=== PATIENT | female | born 1990 | race Two or more races ===

== ENCOUNTER → 2020-09-10 11:03 | Outpatient (BNVA) | payer OTHER, SELFPAY | PROVIDERS: Visit Provider Physician Assistant | DX: S93.401A Sprain of unspecified ligament of right ankle, initial encounter (principal); T14.8XXA Other injury of unspecified body region, initial encounter; W01.0XXA Fall on same level from slipping, tripping and stumbling without subsequent striking against object, initial encounter | CPT/HCPCS: 73610; 99203 ==

== ENCOUNTER → 2020-09-15 11:17 | Outpatient (BNVA) | payer OTHER, SELFPAY | PROVIDERS: Visit Provider Physician Assistant | DX: S93.401A Sprain of unspecified ligament of right ankle, initial encounter (principal); S40.011A Contusion of right shoulder, initial encounter; X58.XXXA Exposure to other specified factors, initial encounter | CPT/HCPCS: 99213 ==

== ENCOUNTER → 2020-09-24 11:02 | Outpatient (BNVA) | payer OTHER, SELFPAY | PROVIDERS: Visit Provider Physician Assistant | DX: S93.401A Sprain of unspecified ligament of right ankle, initial encounter (principal); X58.XXXA Exposure to other specified factors, initial encounter | CPT/HCPCS: 99213 ==

== ENCOUNTER 2023-11-01 08:51 | Outpatient (AMB) | payer OTHER, SELFPAY ==
--- NOTE | 2023-11-01 09:03 | AM.OFFWIN_ITS ---
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 ? Sprain. Happened [place] at [employer]. Patient Tobacco Use Status: Never used Tobacco Allergies No Known Allergies Allergy (Verified 11/01/23 09:03) Do you need a note to return to daycare/school/sports/work: Yes HPI HPI Comments History of Present Illness Details 33 yo female patient who presents to the walk in clinic with c/o left Ankle pain and swelling since yesterday. She was playing with her kids on the [place] [employer] and thinks she might have injured then. Pain with walking or standing for prolonged period of times. Reports taking Acetaminophen with some pain relif. PFSH Social History Patient Tobacco Use Status: Never used Tobacco Review of Systems Const All systems reviewed & are unremarkable except as noted in HPI and below Physical Exam Vital Signs: Last Vital Signs Temp 97.6 F 11/01/23 09:04 Pulse 74 11/01/23 09:04 BP 116/78 11/01/23 09:04 Pulse Ox 98 11/01/23 09:04 Oxygen Delivery Method Room Air 11/01/23 09:04 BMI result Body Mass Index 39.0 Const General: cooperative and no acute distress Nutritional Appearance: obese Orientation/consciousness: patient oriented x3 Skin General skin exam: no rashes or lesions noted Neuro Other: Walks with a slight limp General: patient oriented x3 and moves all extremities Extrem Right lower extremity: normal to inspection and full ROM Left lower extremity: ankle Details: tenderness (Tenderness at the Calcaneus bone) Location: of the lateral malleolus, swelling Details: laterally and abnormal ROM; no warmth, no abrasions, no ecchymosis and no crepitus Psych Speech and movement: Normal speech and movement present Assessment & Plan Assessment & Plan (1) Sprain of left ankle: Code(s): S93.402A - Sprain of unspecified ligament of left ankle, initial encounter Qualifiers: Encounter type: initial encounter Involved ligament of ankle: unspecified ligament Qualified Code(s): S93.402A - Sprain of unspecified ligament of left ankle, initial encounter Plan: Applied Ankle Brace REst joint and elevate NSAIDs for pain relief IceHot Plan Ordered Xray Ankle. Medications: New naproxen 500 mg PO BID 60 tabs 0RF S93.402A - Sprain of unspecified ligament of left ankle, initial encounter Coding Level of Care Code Est Pt Level 4 (13428) Diagnoses Sprain of left ankle, unspecified ligament, initial encounter S93.402A Encounter type: initial encounter Involved ligament of ankle: unspecified ligament Time Spent (min) 20
[2023-11-01 09:04] VITALS: BP 116/78; PULSE 74; TEMP 36.4; O2SAT 98; BMI 39.0
== END 2023-11-01 11:04 | disposition home or self-care (01) ==
PROVIDERS: PCP Nurse Practitioner Family; Visit Provider Nurse Practitioner Family
DX: S93.402A Sprain of unspecified ligament of left ankle, initial encounter (principal)
CPT/HCPCS: 99214

== ENCOUNTER 2023-11-01 09:25 | Outpatient (REF) | payer OTHER, SELFPAY ==
--- NOTE | ~2023-11-01 | XR_ITS ---
EXAMINATION: XR ANKLE, LEFT CLINICAL INFORMATION: Straining of unspecified ligaments of left ankle. COMPARISON: None available. TECHNIQUE: AP, lateral, and mortise views of the left ankle. FINDINGS: Large plantar calcaneal spur. Bone mineralization is normal. Ankle mortise is maintained. No acute displaced fracture appreciated. XR/XR ankle LT min 3V IMPRESSION: 1. Large plantar calcaneal spur. 2. No acute displaced fracture. Recommend follow up imaging in 10 to 14 days if fracture is suspected. This study was presented today November 01, 2023 for interpretation. Stat results provided at this time as requested by referring provider.
== END 2023-11-01 09:26 | disposition home or self-care (01) ==
LOC: HO.HMGCX 09:25
PROVIDERS: PCP Nurse Practitioner Family; Visit Provider Nurse Practitioner Family
DX: S93.402D Sprain of unspecified ligament of left ankle, subsequent encounter (principal)
CPT/HCPCS: 73610

== ENCOUNTER 2024-03-15 10:30 | Outpatient (REF) | payer OTHER, SELFPAY ==
[2024-03-15 14:40] LABS: Influenza A PCR NEGATIVE (Negative); Influenza B PCR NEGATIVE (Negative); Resp Syncy Virus RNA Qual PCR POSITIVE (Negative); SARS COV2 PCR INHOUSE NEGATIVE (Negative)
== END 2024-03-15 10:31 | disposition home or self-care (01) ==
LOC: HO.LAB 10:30
PROVIDERS: PCP Nurse Practitioner Family; Visit Provider Physician Assistant
DX: J06.9 Acute upper respiratory infection, unspecified (principal)
CPT/HCPCS: 0241U; 87880

== ENCOUNTER 2024-03-15 10:30 | Outpatient (AMB) | payer OTHER, SELFPAY ==
--- NOTE | 2024-03-15 10:46 | MHC.OFFWIV ---
Intake Vital Signs 03/15/24 10:48 Weight 224 lb BP 112/70 Blood Pressure Location Rt brachial Position Sitting Pulse 82 Pulse Source Pulse Oximeter Temp 98.9 F Temp Source Oral Pulse Oximetry (%) 98 Oxygen Delivery Method Room Air Intake Visit Reasons: EP sore throat, body ache, headache Intake Note: Patient here for sore throat, body aches and headaches that started about 1 week ago. Patient Tobacco Use Status: Never used Tobacco Allergies No Known Allergies Allergy (Verified 03/15/24 10:49) Do you need a note to return to daycare/school/sports/work: No HPI HPI Comments History of Present Illness Details History The patient is a 33-year-old female presenting with symptoms consistent with a viral upper respiratory infection. She reports that her throat has been sore, particularly worsening over the last two nights. She also experiences ear pain, swollen glands, generalized body aches, and chills, although she has not measured any fevers. Symptoms began approximately one week ago for the headache and a few days more acutely for the sore throat and associated symptoms. She has been managing the symptoms with Tylenol every eight hours and a combination of NyQuil for cold and flu symptoms. The relief is temporary; she feels better upon waking but deteriorates as the day progresses. She denies any significant cough beyond a mild occasional one, no wheezing, and no shortness of breath that would necessitate the use of an inhaler, although she does have asthma. She works at a [employer] in [place], where several colleagues have been ill recently. She is concerned about health management as she plans to travel on a cruise to [place] in 2 days. Physical Exam General: Cooperative, healthy appearing, comfortable and no acute distress Orientation/consciousness: Patient oriented x3 Limitations: No limitations Head: Normal to inspection Ears: Hearing grossly normal bilaterally, external ears normal, bilateral TM erythema Nose: Normal external nose present, Normal nares present and No nasal discharge present Face and sinus: Normal facial exam and Yes sinuses nontender Mouth: Normal oral and palatal mucosa present and moist mucous membranes Throat: Yes tonsils normal, Yes uvula midline. Posterior oropharynx erythema Eyes: Appearance normal, both eyes and all related structures Neck: Normal visual inspection, swollen gland noted on one side Respiratory: Clear to auscultation bilaterally. Normal respiratory effort, able to speak in complete sentences, no respiratory distress, not tachypneic, no tripod positioning and no use of accessory muscles Cardiovascular: Regular rate and rhythm. Normal S1 and S2 Skin: No rashes or lesions noted Neuro: Patient oriented x3 Extremities: Normal to inspection and Yes no clubbing, cyanosis or edema PFSH Social History Patient Tobacco Use Status: Never used Tobacco Review of Systems Const All systems reviewed & are unremarkable except as noted in HPI and below Physical Exam Vital Signs: Last Vital Signs Temp 98.9 F 03/15/24 10:48 Pulse 82 03/15/24 10:48 BP 112/70 03/15/24 10:48 Pulse Ox 98 03/15/24 10:48 Oxygen Delivery Method Room Air 03/15/24 10:48 Results AMB Rapid Strep AMB Rapid Strep Negative Last Edit by NISHANT Ernst on 03/15/24 11:02 Assessment & Plan Assessment & Plan (1) URI, acute: Code(s): J06.9 - Acute upper respiratory infection, unspecified Plan: Plan - Continue symptomatic management with [id number] medications such as Tylenol and NyQuil for viral symptoms. - Swabs were taken for Influenza, COVID-19, and RSV testing. Results will be communicated to the patient once available. - Discussed the natural course of the viral illness and the typical duration of symptoms. - Provided a prescription for azithromycin Z-Pernell as a precautionary measure to cover potential atypical bacterial infections, especially considering upcoming travel. - Instructed to monitor symptoms, use her asthma inhaler if needed, and reach out for any worsening of respiratory symptoms. - Advised to seek follow-up if symptoms are not improving as expected or if any new symptoms develop. Patient was informed and verbally consented to the use of an ambient scribe for clinic note documentation during this visit Orders: Orders AMB Rapid Strep Screen Today Z13.9 - Encounter for screening, unspecified SARS-CoV2/FLU/RSV Today J06.9 - Acute upper respiratory infection, unspecified Medications: New azithromycin For 250 mg dose pack: take 500 mg today (day 1), then 250 mg for 4 days (days 2-5) PO 6 tabs 0RF Coding Level of Care Code New Pt Level 3 (16590) Diagnoses URI, acute J06.9
[2024-03-15 10:48] VITALS: BP 112/70; PULSE 82; TEMP 37.2; O2SAT 98
== END 2024-03-15 11:18 | disposition home or self-care (01) ==
PROVIDERS: PCP Nurse Practitioner Family; Visit Provider Physician Assistant
DX: J06.9 Acute upper respiratory infection, unspecified (principal); Z13.9 Encounter for screening, unspecified

== ENCOUNTER 2024-03-29 10:35 | Outpatient (AMB) | payer OTHER, SELFPAY ==
--- NOTE | 2024-03-29 11:25 | AM.OFFWIN_ITS ---
Intake Vital Signs 03/29/24 11:29 Weight 212 lb BP 112/80 Blood Pressure Location Rt brachial Position Sitting Pulse 98 Pulse Source Pulse Oximeter Temp 99.0 F Temp Source Oral Pulse Oximetry (%) 97 Oxygen Delivery Method Room Air Intake Visit Reasons: EP sore throat, fever, cough, sob Intake Note: Patient here for fever, cough, nausea,SOB, chest tightness that has been present for about 2 weeks. Patient Tobacco Use Status: Never used Tobacco Allergies No Known Allergies Allergy (Verified 03/29/24 11:30) Do you need a note to return to daycare/school/sports/work: Yes HPI HPI Comments History of Present Illness Details History - The patient is a 33-year-old female pr esenting with worsening symptoms following a Respiratory Syncytial Virus (RSV) infection. - She reports shortness of breath, bilat eral back pain, cough, fever, and recent nausea. Respiratory symptoms began after a confirmed RSV diagnosis on March 15. - Symptoms have intensified over the pas t two days, despite using cold flu medication and Tylenol. - History of asthma with increased albut rocael inhaler usage noted, but recently she ran out of medication. - Denies ear or sinus pain, although the re is some discomfort perceived between the eyes. Physical Exam General: Cooperative, healthy appearing, comfortable and no acute distress Orientation/consciousness: Patient oriented x3 Limitations: No limitations Head: Normal to inspection Ears: Hearing grossly normal bilaterally, external ears normal and TM's normal left, slight purulent effusion right TM Nose: Normal external nose present, Normal nares present and No nasal discharge present Face and sinus: Normal facial exam and Yes sinuses nontender Mouth: Normal oral and palatal mucosa present and moist mucous membranes Throat: Yes tonsils normal, Yes uvula midline. Posterior oropharynx erythema Eyes: Appearance normal, both eyes and all related structures Neck: Normal visual inspection Respiratory: Clear but dim to auscultation bilaterally. Normal respiratory effort, able to speak in complete sentences, Actively coughing, no respiratory distress, not tachypneic, no tripod positioning and no use of accessory muscles Cardiovascular: Heart rate elevated, Regular rate and rhythm. Normal S1 and S2 Skin: No rashes or lesions noted Neuro: Patient oriented x3 Extremities: Normal to inspection and Yes no clubbing, cyanosis or edema PFSH Social History Patient Tobacco Use Status: Never used Tobacco Review of Systems Const All systems reviewed & are unremarkable except as noted in HPI and below Physical Exam Vital Signs: Last Vital Signs Temp 99.0 F 03/29/24 11:29 Pulse 113 H 03/29/24 11:29 BP 112/80 03/29/24 11:29 Pulse Ox 97 03/29/24 11:29 Oxygen Delivery Method Room Air 03/29/24 11:29 Assessment & Plan Assessment & Plan (1) RSV bronchitis: Code(s): J20.5 - Acute bronchitis due to respiratory syncytial virus Plan: RSV confirmed on 03/15/24. Today, VSS, HR was elevated but came down, PE remarkable for OM and dim lung sounds. The patient is suspected of having community-acquired pneumonia alongside a confirmed diagnosis of Acute Otitis Media. Treatment involves starting Augmentin to address the ear infection and any bacterial component of the respiratory illness. A chest X-ray is ordered for further assessment; azithromycin will be added to the treatment regimen should pneumonia be confirmed. The patient should continue using the albuterol inhaler as needed every four to six hours and follow a regimen of rest and hydration. If symptoms deteriorate, a visit to the emergency department for further evaluation is recommended. Patient was informed and verbally consented to the use of an ambient scribe for clinic note documentation during this visit Orders: Orders XR chest 2V Today R05.9 - Cough, unspecified Medications: New albuterol sulfate 90 mcg/actuation 2 puffs inhalation Q6H PRN 8.5 grams 0RF shortness of breath or wheezing or cough amoxicillin-pot clavulanate 875-125 mg 1 tab PO Q12H 14 tabs 0RF Coding Level of Care Code New Pt Level 4 (60726) Diagnoses RSV bronchitis J20.5
[2024-03-29 11:29] VITALS: BP 112/80; PULSE 98; TEMP 37.2; O2SAT 97
== END 2024-03-29 11:51 | disposition home or self-care (01) ==
PROVIDERS: PCP Nurse Practitioner Family; Visit Provider Physician Assistant
DX: J20.5 Acute bronchitis due to respiratory syncytial virus (principal)

== ENCOUNTER 2024-03-29 10:35 | Outpatient (REF) | payer OTHER, SELFPAY ==
--- NOTE | ~2024-03-29 | XR_ITS ---
EXAMINATION: XR CHEST CLINICAL INFORMATION: R05.9 - Cough, unspecified COMPARISON: None available. TECHNIQUE: 2 views of the chest were obtained. FINDINGS: No significant abnormality is noted involving the heart, lungs, mediastinum, bony thorax or soft tissues. XR/XR chest 2V IMPRESSION: Unremarkable chest examination. Electronically signed by: Andrez Aguilar MD 03/29/2024 01:05 PM [facility]
== END 2024-03-29 10:36 | disposition home or self-care (01) ==
LOC: HO.HMGCX 10:35
PROVIDERS: PCP Nurse Practitioner Family; Visit Provider Physician Assistant
DX: R05.9 Cough, unspecified (principal)
CPT/HCPCS: 71046

== ENCOUNTER 2024-10-04 15:10 | Inpatient (IN) | payer OTHER, SELFPAY ==
--- NOTE | ~2024-10-04 | CT_ITS ---
CLINICAL HISTORY: abd pain, LLQ, suprapubic CT abdomen and pelvis with contrast Comparison: None provided Findings: No consolidation or effusion. Unremarkable gallbladder and solid organs. No urolithiasis. No bowel obstruction, pneumoperitoneum, or pneumatosis. 2 cm left ovarian cyst compatible with a physiologic cyst. Small amount of pelvic free fluid. Unremarkable uterus, right adnexa and urinary bladder. The appendix tip is distended with fluid, contains appendicoliths and is dilated to 11 mm. Mild thickening of the appendix wall. No gross evidence of edema of the appendix mesentery. No acute fracture. IMPRESSION: 1. Findings suggest early acute appendicitis. 2. There is a small amount of pelvic free fluid. There is no abscess. This document has been electronically signed by: Tika Parsons MD on 10/04/2024 17:07:25
[2024-10-04 15:35] VITALS: BP 101/65; PULSE 88; RESP 19; TEMP 36.5; O2SAT 99; BMI 39.3
--- NOTE | 2024-10-04 15:38 | ED_ITS ---
HPI - Abdominal Pain General Chief Complaint: Abdominal Pain Stated Complaint: LOW ABD PAIN,NAUSEA PER EMS Time Seen by Provider: 10/04/24 15:38 Source: patient and RN notes reviewed Mode of arrival: ambulatory Limitations: no limitations History of Present Illness ED Provider: Iris Rivera PA-C HPI narrative: This is a 34-year-old female, with no known medical problems, who presents emergency department with complaints of episode of lower abdominal pain which started while she was having a bowel movement this afternoon. Patient states that while she was having a normal bowel movement, was not straining, she suddenly felt pain in her left lower abdomen. She felt sweaty, and thought she was going to pass out. She did not lose consciousness. She states that she continues to have pain in her left lower quadrant as well as nausea. No vomiting. No recent fevers, chills, chest pain, shortness for breath, diarrhea or constipation. No urinary symptoms. She has a Nexplanon, states that her menses are abnormal. Denies any abnormal vaginal discharge. No concerns for sexually transmitted infections. No other complaints or concerns at this time. MD elicited complaint: abdominal pain Pertinent past history: none Onset (ago): minute(s) Pain Consistency: constant Location: LLQ and suprapubic Severity: moderate Quality: cramping Migration to: no migration Exacerbating factors: nothing Relieving factors: nothing Associated symptoms: nausea Related Data Home Medications ?Medication ?Instructions ?Recorded ?Confirmed No Known Home Meds 10/04/24 10/04/24 Allergies Allergy/AdvReac Type Severity Reaction Status Date / Time No Known Allergies Allergy Verified 10/04/24 15:44 Review of Systems Review of Systems Yes all other systems are reviewed and are negative Constitutional: Reports as per [facility] Social History Social History Patient Tobacco Use Status: Never used Tobacco Smoked in Last 30 Days: No Use of substances other than those prescribed or required for medical reasons: No Advance Directives: No Advance Directives Information Provided: No Do you have a plan to hurt others: No Plan Patient : No Physical Exam ED Vital Signs: Vital Signs - 24 hr 10/04/24 15:35 10/04/24 17:41 Temperature 97.7 F Pulse Rate 88 81 Respiratory Rate 19 18 Blood Pressure 101/65 100/68 Pulse Oximetry 99 99 Oxygen Delivery Method Room Air Room Air BMI result Body Mass Index 39.3 Const General: cooperative, comfortable and no acute distress Orientation/consciousness: patient oriented x3 Limitations: no limitations HENMT Head: Yes normal to inspection, Yes normocephalic and Yes atraumatic Ears: hearing grossly normal bilaterally General nose exam: Normal external nose present Face and sinus: Yes normal facial exam Mouth: Normal oral and palatal mucosa present, oropharynx normal and moist mucous membranes Throat: Yes posterior oropharynx normal Eyes General: appearance normal, both eyes and all related structures Eyelids: Yes eyelids normal Conjunctivae: conjunctivae normal Sclerae: sclerae normal Pupils: Equal, round and reactive pupils present EOM: EOMs intact bilaterally Neck Neck: Yes normal visual inspection, Yes full ROM and Yes no lymphadenopathy Lymphatic: no lymphadenopathy noted Chest Chest palpation & inspection: normal inspection of the chest Resp Effort & Inspection: normal respiratory effort and able to speak in complete sentences Auscultation: clear to auscultation bilaterally, no crackles, no rales, no rhonchi and no wheezes Cardio Rate: regular rate Rhythm: regular rhythm Heart sounds: S1 normal heart sound present and S2 normal heart sound present GI Other: Abdomen is soft with tenderness palpation in the left lower quadrant and suprapubic region. No rebound or guarding. Inspection: Yes normal to inspection Skin General skin exam: no rashes or lesions noted Trauma: no lacerations or abrasions Wounds: no wounds Neuro General: patient oriented x3 and moves all extremities Cranial nerves: Yes Equal, round and reactive pupils present Extrem General: Yes normal to inspection Right upper extremity: normal to inspection Left upper extremity: normal to inspection Right lower extremity: normal to inspection Left lower extremity: normal to inspection Medical Decision Making Medical Decision Making MDM Narrative: This is a 34-year-old female who presents emergency department with complaints of left lower quadrant pain and nausea which started while she was having a bowel movement this afternoon. On arrival, vital signs within normal limits, she is speaking in full sentences under no acute distress. Abdomen is soft with tenderness palpation in the left lower quadrant. No urinary symptoms. No constipation or diarrhea. No history of similar symptoms in the past. She does have mild tenderness palpation in the suprapubic region however primarily in the left lower quadrant therefore will obtain CT abdomen and pelvis with IV contrast, will also medicate with IV fluids, IV Zofran, and IV Tylenol, labs also ordered, EKG ordered due to episode of dizziness/near-syncope. Course: Labs returned, she has no leukocytosis, she is not , chemistry reveals no significant electrolyte derangement. Urine noninfectious. 1707 - CAT scan reviewed as findings suggestive of early acute appendicitis. She also has a 2 cm left ovarian cyst. I discussed this with Dr. Ryan surgeon, who will admit to the medical service for IV antibiotics. Discussed findings with patient, she is feeling much better after receiving IV fluids, antiemetics, and pain medication. Transfer of care initiated to the surgical service. Differential Diagnosis Differential Diagnoses: The differential diagnosis associated with the presentation includes Diverticulitis, diverticulosis, gastritis, SBO, UTI, nephrolithiasis Admission/Observation Consideration of admission/observation: Escalation of care including admission/observation considered Patient requiring admission secondary to early appendicitis Consult Healthcare Provider Management of the patient was discussed with: Marketing Copywriter Surgical consultation, see MDM Lab Data [facility] Lab Attestation statement: I reviewed the patient's lab results. See MDM and course 10/04/24 15:53 10/04/24 15:53 Labs: Lab Results 10/04/24 10/04/24 Range/Units 15:53 17:05 WBC 5.5 (4.8-10.8) X10*3/uL RBC 4.18 L (4.20-5.50) X10*6/uL Hgb 12.4 (12.0-16.0) g/dl Hct 36.1 L (37.0-47.0) % MCV 86.4 (80.0-98.0) fL MCH 29.7 (27.0-33.0) pg MCHC 34.3 (31.0-35.0) g/dl RDW 13.0 (11.0-16.0) % Plt Count 283 (160-400) X10*3/uL MPV 9.6 (9.4-12.3) fL Immature Gran % (Auto) 0.4 (0.0-0.4) % Neut % (Auto) 58.0 (45-73) % Lymph % (Auto) 30.9 (20-40) % [place] % (Auto) 6.7 (2-11) % Eos % (Auto) 3.6 (0-4) % Baso % (Auto) 0.4 (0-2) % Lymph # (Auto) 1.7 (1.2-4.9) X10*3/uL [place] # (Auto) 0.4 (0.1-1.2) X10*3/uL Eos # (Auto) 0.2 (0.0-0.4) X10*3/uL Baso # (Auto) 0.0 (0.0-0.2) X10*3/uL Abs Immat Gran (auto) 0.02 (0.00-0.03) X10*3/uL Absolute Neuts (auto) 3.2 (2.0-8.3) x10*3/uL Absolute Nucleated RBC 0.000 (0.0-0.012) X10*3/uL Nucleated RBC % (auto) 0.0 (0.0-0.2) /100WBC Sodium 135 (135-145) mmol/L Potassium 3.9 (3.3-5.1) mmol/L Chloride 106 (96-108) mmol/L Carbon Dioxide 22 (22-29) mmol/L Anion Gap 11 L (12-20) BUN 10 (9-16) mg/dL Creatinine 0.74 (0.5-1.4) mg/dL Estim Creat Clear Calc 114.4 Estimated GFR > 60 Random Glucose 99 (60-115) mg/dL Calcium 8.6 (8.4-10.2) mg/dL Magnesium 1.9 (1.6-2.6) mg/dL Total Bilirubin 0.5 (0.0-1.0) mg/dL Direct Bilirubin 0.2 (0.0-0.5) mg/dL AST 23 (5-31) U/L ALT 11 (0-31) U/L Alkaline Phosphatase 58 (39-117) U/L Total Protein 6.8 (6.5-8.0) g/dL Albumin 3.8 (3.5-5.0) g/dL Lipase 21 (8-78) U/L Beta HCG, Quant < 2 mIU/mL Urine Color Yellow Urine Appearance Clear Urine pH 6.5 (5.0-9.0) Ur Specific [place] 1.015 (1.005-1.025) Urine Protein Negative (Neg-Trace) mg/dL Urine Glucose (UA) Negative (Negative) mg/dL Urine Ketones 15 (Negative) mg/dL Urine Blood Negative (Negative) Urine Nitrite Negative (Negative) Ur Leukocyte Esterase Negative (Negative) Radiology Impression Discussion of test interpretation with radiology: I have reviewed the radiologist's reading. Radiologist Impression: CT abdomen and pelvis with contrast Comparison: None provided Findings: No consolidation or effusion. Unremarkable gallbladder and solid organs. No urolithiasis. No bowel obstruction, pneumoperitoneum, or pneumatosis. 2 cm left ovarian cyst compatible with a physiologic cyst. Small amount of pelvic free fluid. Unremarkable uterus, right adnexa and urinary bladder. The appendix tip is distended with fluid, contains appendicoliths and is dilated to 11 mm. Mild thickening of the appendix wall. No gross evidence of edema of the appendix mesentery. No acute fracture. IMPRESSION: 1. Findings suggest early acute appendicitis. 2. There is a small amount of pelvic free fluid. There is no abscess. This document has been electronically signed by: Tika Parsons MD on 10/04/2024 17:07:25 Dictated By: Tika Parsons MD Medications Administered Generic Name Dose Route Start Last Admin Trade Name Freq PRN Reason Stop Dose Admin Dextrose/Lactated Ringer's 1,000 mls @ 125 mls/hr 10/04/24 18:15 10/04/24 18:36 D5lr IVCONT 125 mls/hr .Q8H NORMAN Administration Piperacillin Sod/Tazobactam 50 mls @ 100 mls/hr 10/04/24 18:15 10/04/24 19:00 Sod 3.375 gm/ Sodium Chloride IV Infused Q6H NORMAN Infusion Discontinued Medications Generic Name Dose Route Start Last Admin Trade Name Freq PRN Reason Stop Dose Admin Diphenhydramine HCl 12.5 mg 10/04/24 17:15 10/04/24 17:39 Diphenhydramine Hcl 50 Mg/Ml Vial IVPUSH 10/04/24 17:16 12.5 mg ONCE ONE Administration Sodium Chloride 1,000 mls @ 999 mls/hr 10/04/24 15:39 10/04/24 17:39 Ns IV 10/04/24 16:39 Infused .Q1H1M ONE Infusion Acetaminophen 1,000 mg in 100 mls @ 400 mls/hr 10/04/24 15:45 10/04/24 16:30 Ofirmev IV 10/04/24 15:59 Infused ONCE ONE Infusion Iohexol 100 ml 10/04/24 16:30 10/04/24 16:30 Iohexol 350 Mg/Ml 100 Ml Infus..Btl IV 10/04/24 16:31 85 ml ONCE ONE Administration Metoclopramide HCl 10 mg 10/04/24 17:15 10/04/24 17:34 Metoclopramide Hcl 10 Mg/2 Ml Vial IVPUSH 10/04/24 17:16 10 mg ONCE ONE Administration Ondansetron HCl 4 mg 10/04/24 15:38 10/04/24 16:08 Ondansetron Hcl 4 Mg/2 Ml Vial IVPUSH 10/04/24 15:39 4 mg ONCE ONE Administration Critical Care Time Critical Care Time Critical Care Time: Yes Total Critical Care Time: 38 Attestation: I have personally provided critical care time exclusive of time spent on separately billable procedures. Time includes review of lab data, radiology results, discussion with consultants, and monitoring for potential decompensation. Intervention performed as documented. Discharge Plan Discharge Clinical Impression: Acute appendicitis Patient Disposition: Admitted As Inpatient Interventions: Admission Worksheet (ED) Last Done: 10/04/24 18:30
--- NOTE | 2024-10-04 15:45 | ECG_ITS ---
Test Reason : NEAR SYNCOPE Blood Pressure : */* mmHG Vent. Rate : 80 BPM Atrial Rate : 80 BPM P-R Int : 176 ms QRS Dur : 92 ms QT Int : 366 ms P-R-T Axes : 17 0 14 degrees QTcB Int : 422 ms Normal sinus rhythm Minimal voltage criteria for LVH, may be normal variant ( R in aVL ) Cannot rule out Anterior infarct , age undetermined Abnormal ECG No previous ECGs available Referred By: Iris Rivera Electronically Signed By: Tello Torres
[2024-10-04 15:57] LABS: MANUAL DIFF FLAG NO
[2024-10-04 16:02] LABS: Hematocrit 36.1 % (37.0-47.0); Hemoglobin 12.4 g/dl (12.0-16.0); Imm Gran Abs Auto 0.02 X10*3/uL (0.00-0.03); Imm Gran Pct Auto 0.4 % (0.0-0.4); Lymphocytes Absolute Auto 1.7 X10*3/uL (1.2-4.9); Mean Corpuscular HGB Conc 34.3 g/dl (31.0-35.0); Mean Corpuscular Hemoglobin 29.7 pg (27.0-33.0); Mean Corpuscular Volume 86.4 fL (80.0-98.0); NRBC Abs Auto 0.000 X10*3/uL (0.0-0.012); NRBC Pct Auto 0.0 /100WBC (0.0-0.2); Platelet Count 283 X10*3/uL (160-400); Red Blood Count 4.18 X10*6/uL (4.20-5.50); White Blood Count 5.5 X10*3/uL (4.8-10.8)
--- OUTSIDE RECORDS SUMMARY | 2024-10-04 16:10 | XMS_ITS | Patient Health Record ---
[facility] [place] Address [address] [place] [address] Care Team Providers Care Dispatcher Relay Name Role Phone Martin SAINI, Estela Primary Care Provider Cynthia Davison Unavailable [phone] Allergies No Known Allergies Reason For Referral No Information Medications Medication SIG (Take, Route, Fr equency, Duration) Notes Start Date End Date Status Albuterol Sulfate HFA Active Bone Stimulator as directed Diagnosi s: seamoid fracture-fracture of right foot, subsequent encounter for fracture with delayed healing- [id number] 02/25/2022 Active Work Note . . . Patient can retu rn to work light duty starting 03/26/22 Act reza Social History Tobacco Use: Social History Observation Description Date Details (start date - stop date) Never Smoker NA - NA Tobacco Use/Smoking Question Answer Notes Are you a: nonsmoker Alcohol Screen Question Answer Notes Did you have a drink containing alcohol in the p ast year? Yes Points 0 Interpretation Negative Tobacco use other than smoking: Question Answer Notes Are you an other tobacco user? No Plan Of Treatment Pending Test Test Name Order Date X ray : Foot, right 3V 02/01/2022 X ray : Foot, right 3V 06/16/2022 Insurance Providers Payer Name Payer Address Payer Phone Subscriber Number Group Number Insured Name Patient Relationship to Insured Coverage Start Date Coverage End Date MELITON RAMIREZ [id number] [place] [id number] [phone] [id number] Rosa Hyman Self - patient is the insured Medical (General) History Surgical History Surgery Date(Month/Year)
--- OUTSIDE RECORDS SUMMARY | 2024-10-04 16:10 | XMS_ITS | Clinical Summary ---
Author Organization [facility] Address [address] [place] [address] Care Team Providers Care Care Services Manager Name Role Phone JobyDanielle ashraf Primary Care Pro vider Surgical History Surgery Date Site/Laterality Comments OTHER SURGICAL HISTORY PROCEDURE: DENIES PREVIOUS SURGERY Family History Medical History Relation Name Comments Asthma Brother 1 Alcohol/Drug Father CABG Maternal Grandmother at age 75 Breast cancer Mother ?brca Relation Name Status Comments Brother 1 Brother 2 Father Maternal Grandmother Mother Social History Tobacco Use Types Packs/Day Years Used Date Smoking Tobacco: Never Smokeless Tobacco: Never Alcohol Use Standard Drinks/Week Comments No 0 (1 standard drink = 0.6 oz pur e alcohol) Comments Unknown Sex and Gender Information Value Date Recorded Sex Assigned at Not on file Legal Sex Female 12:23 AM EST Gender Identity Not on file Sexual Orientation Not on file Obstetrics History Plan of Treatment Health Maintenance Due Date Last Done Comments Hepatitis B Vaccines (1 of 3 - 19+ 3-dose series) 2011 Cervical Cancer Screening: P ap Smear 2013 DTaP,Tdap,and Td Vaccines (2 - Td or Tdap) 07/11/2023 07/10/2013 COVID-19 Vaccine ( - 2023-2 5 season) 2023 Influenza Vaccine (#1) 2024 HIB Vaccines Aged Out No longer eligi ble based on patient's age to complete this topic HPV Vaccines Aged Out No longer eligi ble based on patient's age to complete this topic Hepatitis A Vaccines Aged Out No long er eligible based on patient's age to complete this topic IPV Vaccines Aged Out No longer eligi ble based on patient's age to complete this topic MMR Vaccines Aged Out No longer eligi ble based on patient's age to complete this topic Meningococcal ACWY Vaccine Aged Out N o longer eligible based on patient's age to complete this topic Meningococcal B Vaccine Aged Out No l onger eligible based on patient's age to complete this topic Pneumococcal Vaccine: Pediat rics (0 to 5 Years) and At-Risk Patients (6 to 49 Years) Aged Out No longer eligi ble based on patient's age to complete this topic RSV Immunization Patients Un lila 20 months Aged Out No longer eligible b ased on patient's age to complete this topic Varicella Vaccines Aged Out No longer eligible based on patient's age to complete this topic Care Teams Care Services Manager Relationship Specialty Start Date End Date Danielle Aggarwal DO PCP - General Accounts Payable Coordinator 07/03/18
[2024-10-04 16:21] LABS: Alanine Aminotransferase 11 U/L (0-31); Albumin Level 3.8 g/dL (3.5-5.0); Alkaline Phosphatase 58 U/L (39-117); Anion Gap 11 (12-20); Aspartate Amino Transferase 23 U/L (5-31); Blood Urea Nitrogen 10 mg/dL (9-16); Calcium 8.6 mg/dL (8.4-10.2); Carbon Dioxide 22 mmol/L (22-29); Chloride 106 mmol/L (96-108); Creatinine Clr Calc Pharmacy 114.4; Estimated Glomerular Filt Rate > 60; Lipase 21 U/L (8-78); Magnesium 1.9 mg/dL (1.6-2.6); Potassium 3.9 mmol/L (3.3-5.1); Sodium 135 mmol/L (135-145); Total Protein 6.8 g/dL (6.5-8.0)
[2024-10-04] MEDS: iohexoL 350 MG/ML 100 ML INFUS..BTL IV (16:30)
[2024-10-04 17:13] LABS: Appearance Urine Clear; Glucose Urine UA Negative (Negative); PH 6.5 (5.0-9.0); Specific Gravity - Urine 1.015 (1.005-1.025)
[2024-10-04 17:41] VITALS: BP 100/68; PULSE 81; RESP 18; O2SAT 99
--- NOTE | 2024-10-04 18:12 | P.HPGS_ITS ---
History of Present Illness History of Present Illness Date of Service: 10/04/24 Chief complaint: LOW ABD PAIN,NAUSEA PER EMS Narrative: Rosa Shledon is a 34 year old female presenting with complaints of lower abdominal pain beginning today. She reports the onset of abdominal pain this afternoon and subsequently tried to have a bowel movement for reported increased in the severity of the pain. She reports feeling dizzy following this but did not pass out. She denies a previous episode of similar pain. The pain has remained in the lower abdomen both left and right. She reports nausea without vomiting after the onset of pain. She denied fever or chills. She was subsequently presented to the emergency department and was noted to have normal WBC however a CT abdomen and pelvis revealed a slightly enlarged appendix with air but without stranding. Fecalith is noted within the lumen of the appendix. She currently reports the pain is much improved and mainly in the right lower quadrant. Review of Systems Review of Systems: Yes all other systems are reviewed and are negative PMFSH Social History Social History Patient Tobacco Use Status: Never used Tobacco Smoked in Last 30 Days: No Use of substances other than those prescribed or required for medical reasons: No Advance Directives: No Advance Directives Information Provided: No Do you have a plan to hurt others: No Plan Patient : No Meds Allergies Allergy/AdvReac Type Severity Reaction Status Date / Time No Known Allergies Allergy Verified 10/04/24 15:44 Active Medications: Current Medications Calcium Carbonate (Calcium Carbonate 750 Mg Tab.Chew) 750 mg PO Q4H PRN PRN Reason: Heartburn Hydromorphone HCl (Hydromorphone Hcl 0.5 Mg/0.5 Ml Syringe) 0.5 mg IVPUSH Q3H PRN; Protocol PRN Reason: Pain, Severe (Pain Scale 7-10) Acetaminophen (Ofirmev) 1,000 mg in 100 mls @ 400 mls/hr IV Q6H PRN PRN Reason: Pain, Mild (Pain Scale 1-3) Dextrose/Lactated Ringer's (D5lr) 1,000 mls @ 125 mls/hr IVCONT .Q8H [facility] Piperacillin Sod/Tazobactam (Sod 3.375 gm/ Sodium Chloride) 50 mls @ 100 mls/hr IV Q6H [facility] Magnesium Hydroxide (Milk Of Magnesia 30 Ml Oral.Susp) 30 ml PO DAILY PRN PRN Reason: Constipation Ondansetron HCl (Ondansetron Hcl 4 Mg/2 Ml Vial) 4 mg IVPUSH QID PRN PRN Reason: Nausea Oxycodone HCl (Oxycodone Hcl Immed Release 5 Mg Tablet) 5 mg PO Q6H PRN PRN Reason: Pain, Moderate(Pain Scale 4-6) Sodium Chloride (0.9 % Sodium Chloride Flush 3 Ml Syringe) 3 ml IVFLUSH QSHIFT [facility] Zolpidem Tartrate (Zolpidem Tartrate 5 Mg Tablet) 5 mg PO BEDTIME PRN PRN Reason: Insomnia Home Medications ?Medication ?Instructions ?Recorded ?Confirmed ?Last Taken ?Type albuterol sulfate 90 mcg/actuation inhalation 11/01/23 Unknown History aerosol inhaler etonogestrel 68 mg subdermal subdermal 11/01/23 Unkno wn History implant (Nexplanon) fluticasone propionate 50 intranasal 11/01/23 Unknown History mcg/actuation nasal spray,suspension levocetirizine 5 mg tablet 5 mg PO DAILY 11/01/23 Unk nown History montelukast 10 mg tablet 10 mg PO DAILY 11/01/23 Unk nown History Physical Exam Vital Signs: Vital Signs: Last Vital Signs Temp 97.7 F 10/04/24 15:35 Pulse 81 10/04/24 17:41 Resp 18 10/04/24 17:41 BP 100/68 10/04/24 17:41 Pulse Ox 99 10/04/24 17:41 O2 Del Method Room Air 10/04/24 17:41 BMI result Body Mass Index 39.3 Const: General: cooperative and no acute distress Nutritional Appearance: well nourished Orientation/consciousness: patient oriented x3 Limitations: no limitations HEENT: Head: Yes normocephalic and Yes atraumatic Ears: hearing grossly normal bilaterally Resp: Effort & Inspection: normal respiratory effort, no audible wheezes, no cough and no respiratory distress Cardio: Jugular venous distension: no JVD GI: Other: Soft and nondistended, negative Rovsing sign, mild tenderness to deep palpation in the right lower quadrant without rebound, guarding or rigidity. No palpable masses appreciated. Inspection: Yes normal to inspection Skin: Other: Warm, dry, no rash Neuro: General: patient oriented x3 Extrem: General: Yes no clubbing, cyanosis or edema Results Results Labs: Short CBC 10/04/24 Range/Units 15:53 WBC 5.5 (4.8-10.8) X10*3/uL Hgb 12.4 (12.0-16.0) g/dl Hct 36.1 L (37.0-47.0) % Plt Count 283 (160-400) X10*3/uL BMP 10/04/24 15:53 Sodium 135 Potassium 3.9 Chloride 106 Carbon Dioxide 22 BUN 10 Creatinine 0.74 Calcium 8.6 Liver Function 10/04/24 Range/Units 15:53 Total Bilirubin 0.5 (0.0-1.0) mg/dL Direct Bilirubin 0.2 (0.0-0.5) mg/dL AST 23 (5-31) U/L ALT 11 (0-31) U/L Alkaline Phosphatase 58 (39-117) U/L Albumin 3.8 (3.5-5.0) g/dL Urine 10/04/24 Range/Units 17:05 Urine Color Yellow Urine Appearance Clear Urine pH 6.5 (5.0-9.0) Ur Specific [place] 1.015 (1.005-1.025) Urine Protein Negative (Neg-Trace) mg/dL Urine Glucose (UA) Negative (Negative) mg/dL Assessment and Plan (1) Acute appendicitis: Qualifiers: Acute appendicitis type: other Qualified Code(s): K35.890 - Other acute appendicitis without perforation or gangrene Status: Acute Plan 34-year-old female patient presenting with possible very early appendicitis with a normal WBC and mild abdominal symptoms. The pain was initially quite severe but is now improved dramatically. CT does reveal a fecalith within the lumen of the appendix as well as air proximal to the fecalith. There are minimal changes suggestive of early appendicitis. I recommended admission to the patient for IV antibiotics and observation. If her pain seems to worsen, laparoscopic appendectomy or possible open would be warranted. If on the other hand she feels much improved in his symptoms remain mild, she may be able to be discharged to home after 1-2 days of parenteral antibiotic. She expressed understanding and agrees with the plan. Quality Stroke Does the patient have a stroke diagnosis?: No VTE Prior VTE?: No VTE Risk Level:: Surgical - low VTE Device Contraindication: N/A - Device Ordered VTE Drug Contraindication: Treatment Not Indicated Procedures Date of Service Date of Service: 10/04/24
[2024-10-04] MEDS: Dextrose 5 % and Lactated Ring 1,000 ML 125 ML IVCONT (18:36)
--- NOTE | 2024-10-04 19:05 | PHA.MEDREC ---
Addendum entered by Ravi Archuleta PharmD 10/04/24 19:09: reviewed Original Note: Pharmacy Consult ? Medication Reconciliation Pharmacy has completed the medication reconciliation. Patient states she is not on ant medication.
[2024-10-04 19:58] VITALS: BP 104/65; PULSE 75; RESP 20; TEMP 36.9; O2SAT 99
[2024-10-04 22:22] VITALS: BP 96/68; PULSE 74; RESP 20; TEMP 36.8; O2SAT 98
[2024-10-05] VITALS (13 sets, daily range): BP systolic 84–118; BP diastolic 40–74; PULSE 69–100; RESP 16–20; TEMP 36.1–36.7; O2SAT 96–100; BMI 37.8
--- NOTE | 2024-10-05 01:46 | PC.NURSE ---
notified of hypotension 84/40, HR 69, awaiting new orders at this time.
--- NOTE | 2024-10-05 01:55 | PC.NURSE ---
ER MD at bedside due to hypotension. Plan for 1 liter NS. U/S paging surgical service.
[2024-10-05] MEDS: Dextrose 5 % and Lactated Ring 1,000 ML 125 ML IVCONT ×3 (03:42→17:57)
--- NOTE | 2024-10-05 03:44 | PC.NURSE ---
MD aware of BP after infusion of 1 liter NS. Plan for maintenance fluids at this time.
--- NOTE | 2024-10-05 06:20 | PC.NURSE ---
MD aware of hypotension. Plan for 3rd liter of NS.
[2024-10-05 06:44] LABS: MANUAL DIFF FLAG NO
[2024-10-05 06:56] LABS: Hematocrit 34.4 % (37.0-47.0); Hemoglobin 11.4 g/dl (12.0-16.0); Imm Gran Abs Auto 0.01 X10*3/uL (0.00-0.03); Imm Gran Pct Auto 0.2 % (0.0-0.4); Lymphocytes Absolute Auto 2.0 X10*3/uL (1.2-4.9); Mean Corpuscular HGB Conc 33.1 g/dl (31.0-35.0); Mean Corpuscular Hemoglobin 29.2 pg (27.0-33.0); Mean Corpuscular Volume 88.0 fL (80.0-98.0); NRBC Abs Auto 0.000 X10*3/uL (0.0-0.012); NRBC Pct Auto 0.0 /100WBC (0.0-0.2); Platelet Count 254 X10*3/uL (160-400); Red Blood Count 3.91 X10*6/uL (4.20-5.50); White Blood Count 4.9 X10*3/uL (4.8-10.8)
--- NOTE | 2024-10-05 07:45 | PC.NURSE ---
Pt ambulatory to/from BR with steady gait; denies pain at this time; NS bolus cont to infuse per orders; LR paused by head of strategy; pt denies N/V; pt aware of planned admission; bp 99/50; pt denies dizziness at this time
--- NOTE | 2024-10-05 07:51 | P.PNGS_ITS ---
Subjective Subjective Date of Service: 10/05/24 Interval history: Feels well this morning. Reports only very mild RLQ discomfort, significantly improved since admission. Feels hungry. Physical Exam 2 Vital Signs: Vital Signs: Last Vital Signs Temp 98.1 F 10/05/24 06:18 Pulse 77 10/05/24 06:18 Resp 16 10/05/24 06:18 BP 99/56 L 10/05/24 06:49 Pulse Ox 98 10/05/24 06:18 O2 Del Method Room Air 10/05/24 06:18 BMI result Body Mass Index 39.3 Const: General: comfortable, no acute distress and alert O rientation/consciousness: patient oriented x3 Resp: Effort & Inspection: normal respiratory effort GI: Other: mildly corpulent abdomen Inspection: No distended Palpation (GI): Soft to palpation, Tenderness to palpation present (GI) (very mild RLQ ) with no rebound tenderness and Rovsing's sign negative, no guarding and not rigid Percussion: Yes normal to percussion Skin: General skin exam: no rashes or lesions noted Neuro: General: patient oriented x3 Objective Data Active Medications Calcium Carbonate (Calcium Carbonate 750 Mg Tab.Chew) 750 mg PO Q4H PRN PRN Reason: Heartburn Hydromorphone HCl (Hydromorphone Hcl 0.5 Mg/0.5 Ml Syringe) 0.5 mg IVPUSH Q3H PRN; Protocol PRN Reason: Pain, Severe (Pain Scale 7-10) Acetaminophen (Ofirmev) 1,000 mg in 100 mls @ 400 mls/hr IV Q6H PRN PRN Reason: Pain, Mild (Pain Scale 1-3) Dextrose/Lactated Ringer's (D5lr) 1,000 mls @ 125 mls/hr IVCONT .Q8H [facility] Last Infusion: 10/05/24 06:06 Dose: 0 mls/hr Documented By: KARTIK Piperacillin Sod/Tazobactam (Sod 3.375 gm/ Sodium Chloride) 50 mls @ 100 mls/hr IV Q6H [facility] Last Infusion: 10/05/24 06:49 Dose: Infused Documented By: COOPEB Magnesium Hydroxide (Milk Of Magnesia 30 Ml Oral.Susp) 30 ml PO DAILY PRN PRN Reason: Constipation Ondansetron HCl (Ondansetron Hcl 4 Mg/2 Ml Vial) 4 mg IVPUSH QID PRN PRN Reason: Nausea Oxycodone HCl (Oxycodone Hcl Immed Release 5 Mg Tablet) 5 mg PO Q6H PRN PRN Reason: Pain, Moderate(Pain Scale 4-6) Sodium Chloride (0.9 % Sodium Chloride Flush 3 Ml Syringe) 3 ml IVFLUSH QSHIFT [facility] Last Admin: 10/05/24 07:30 Dose: Not Given Documented By: FELIPE Non-Admin Reason: IV Running Zolpidem Tartrate (Zolpidem Tartrate 5 Mg Tablet) 5 mg PO BEDTIME PRN PRN Reason: Insomnia Labs 10/05/24 06:25 10/04/24 15:53 Labs: Laboratory Results - last 24 hr 10/04/24 10/04/24 10/05/24 15:53 17:05 06:25 MCV 86.4 88.0 MCH 29.7 29.2 MCHC 34.3 33.1 RDW 13.0 13.2 Plt Count 283 254 MPV 9.6 9.8 Immature Gran % (Auto) 0.4 0.2 Neut % (Auto) 58.0 44.4 L Lymph % (Auto) 30.9 41.1 H [place] % (Auto) 6.7 9.2 Eos % (Auto) 3.6 4.5 H Baso % (Auto) 0.4 0.6 Lymph # (Auto) 1.7 2.0 [place] # (Auto) 0.4 0.5 Eos # (Auto) 0.2 0.2 Baso # (Auto) 0.0 0.0 Abs Immat Gran (auto) 0.02 0.01 Absolute Neuts (auto) 3.2 2.2 Absolute Nucleated RBC 0.000 0.000 Nucleated RBC % (auto) 0.0 0.0 Anion Gap 11 L Estim Creat Clear Calc 114.4 Estimated GFR > 60 Random Glucose 99 Calcium 8.6 Magnesium 1.9 Total Bilirubin 0.5 Direct Bilirubin 0.2 AST 23 ALT 11 Alkaline Phosphatase 58 Total Protein 6.8 Albumin 3.8 Lipase 21 Beta HCG, Quant < 2 Urine Color Yellow Urine Appearance Clear Urine pH 6.5 Ur Specific [place] 1.015 Urine Protein Negative Urine Glucose (UA) Negative Urine Ketones 15 Urine Blood Negative Urine Nitrite Negative Ur Leukocyte Esterase Negative Procedures Date of Service Date of Service: 10/05/24 Progress Note: A&P Assessment and plan (1) Acute appendicitis: Status: Acute Plan 34 year old female with acute appendicitis, nonoperative measures being pursued. She currently feels improved with significant improvement in her abdominal pain. WBC count remains normal. Abd soft, very mild RLQ tenderness, no peritoneal signs. Will advance diet. If tolerating and pain remains improved, stable for dc to home later today on a course of oral abx. Patient comfortable with plan. Time Spent With Patient Time: Total time managing care of this patient today ____ minutes. Quality Stroke Does the patient have a stroke diagnosis?: No VTE Prior VTE?: No VTE Risk Level:: Surgical - low VTE Device Contraindication: N/A - Device Ordered VTE Drug Contraindication: Treatment Not Indicated
--- NOTE | 2024-10-05 09:03 | MHC.CM.PN ---
PATIENT LIVES IN A HOME W/ HER AND 2 CHILDREN. FUNCTIONALLY INDEPENDENT. DENIES USE OF DME OR SERVICES. PCP MAR LUJAN NO REPORTS SHE HAS AN HCP NAMING HER , [facility], [facility]. COPY REQUESTED. DP: HOME SELF CARE. TO TRANSPORT. CM WILL CONTINUE TO FOLLOW.
[2024-10-05] MEDS: 0.9 % Sodium Chloride Flush 3 ML SYRINGE IVFLUSH (23:32)
[2024-10-06] MEDS: Dextrose 5 % and Lactated Ring 1,000 ML 125 ML IVCONT (02:44)
[2024-10-06 03:34] VITALS: BP 100/53; PULSE 74; RESP 16; TEMP 36.3; O2SAT 98
[2024-10-06 07:46] VITALS: BP 98/60; PULSE 78; RESP 16; TEMP 36.7; O2SAT 95
--- NOTE | 2024-10-06 10:10 | P.PNGS_ITS ---
Subjective Subjective Date of Service: 10/06/24 Interval history: Denies pain Feels well Tolerating diet No GI complaints Physical Exam 2 Vital Signs: Vital Signs: Last Vital Signs Temp 98.1 F 10/06/24 07:46 Pulse 78 10/06/24 07:46 Resp 16 10/06/24 07:46 BP 98/60 10/06/24 07:46 Pulse Ox 95 10/06/24 07:46 O2 Del Method Room Air 10/06/24 07:46 BMI result Body Mass Index 37.8 Const: General: comfortable and no acute distress Resp: Effort & Inspection: normal respiratory effort Cardio: Rate: regular rate GI: Palpation (GI): Soft to palpation, not firm, nontender and no guarding Objective Data Active Medications Calcium Carbonate (Calcium Carbonate 750 Mg Tab.Chew) 750 mg PO Q4H PRN PRN Reason: Heartburn Hydromorphone HCl (Hydromorphone Hcl 0.5 Mg/0.5 Ml Syringe) 0.5 mg IVPUSH Q3H PRN; Protocol PRN Reason: Pain, Severe (Pain Scale 7-10) Acetaminophen (Ofirmev) 1,000 mg in 100 mls @ 400 mls/hr IV Q6H PRN PRN Reason: Pain, Mild (Pain Scale 1-3) Dextrose/Lactated Ringer's (D5lr) 1,000 mls @ 125 mls/hr IVCONT .Q8H [facility] Last Infusion: 10/06/24 06:53 Dose: 125 mls/hr Documented By: LEANN Piperacillin Sod/Tazobactam (Sod 3.375 gm/ Sodium Chloride) 50 mls @ 100 mls/hr IV Q6H [facility] Last Infusion: 10/06/24 06:53 Dose: Infused Documented By: LEANN Magnesium Hydroxide (Milk Of Magnesia 30 Ml Oral.Susp) 30 ml PO DAILY PRN PRN Reason: Constipation Ondansetron HCl (Ondansetron Hcl 4 Mg/2 Ml Vial) 4 mg IVPUSH QID PRN PRN Reason: Nausea Oxycodone HCl (Oxycodone Hcl Immed Release 5 Mg Tablet) 5 mg PO Q6H PRN PRN Reason: Pain, Moderate(Pain Scale 4-6) Sodium Chloride (0.9 % Sodium Chloride Flush 3 Ml Syringe) 3 ml IVFLUSH QSHIFT [facility] Last Admin: 10/06/24 08:50 Dose: Not Given Documented By: ISRRAEL Non-Admin Reason: IV Running Zolpidem Tartrate (Zolpidem Tartrate 5 Mg Tablet) 5 mg PO BEDTIME PRN PRN Reason: Insomnia Labs 10/05/24 06:25 10/04/24 15:53 Procedures Date of Service Date of Service: 10/06/24 Progress Note: A&P Assessment and plan (1) Acute appendicitis: Status: Acute Assessment and Plan: Has had no pain or tenderness No leukocytosis No fever Looks well clinically Plan to DC home later today on oral antibiotics Discharge instructions reinforced with the patient She is to follow up with Dr. Ryan Time Spent With Patient Time: Total time managing care of this patient today ____ minutes. Quality Stroke Does the patient have a stroke diagnosis?: No VTE Prior VTE?: No VTE Risk Level:: Surgical - low VTE Device Contraindication: N/A - Device Ordered VTE Drug Contraindication: Treatment Not Indicated
--- NOTE | 2024-10-06 12:11 | MHC.CM.PN ---
PT TO DC HOME TODAY WITH NO SERVICES VIA PRIVATE TRANSPORT
[2024-10-06 13:08] VITALS: BP 117/65; PULSE 80; TEMP 37.2; O2SAT 98
--- NOTE | 2024-10-06 13:23 | PM.DS ---
DS: Providers Provider Date of Service: 10/06/24 Date of admission: 10/04/24 18:08 Date of discharge: 10/06/24 Primary care physician: Estela San NP Attending physician on admission: Abelardo Ryan Attending physician on discharge: Fortunato Tate DS: Diagnosis Discharge Diagnosis (1) Acute appendicitis: Status: Acute DS: Summary Hospital Course Hospital Course: HPI AT ADMISSION: Rosa Sheldon is a 34 year old female presenting with complaints of lower abdominal pain beginning today. She reports the onset of abdominal pain this afternoon and subsequently tried to have a bowel movement for reported increased in the severity of the pain. She reports feeling dizzy following this but did not pass out. She denies a previous episode of similar pain. The pain has remained in the lower abdomen both left and right. She reports nausea without vomiting after the onset of pain. She denied fever or chills. She was subsequently presented to the emergency department and was noted to have normal WBC however a CT abdomen and pelvis revealed a slightly enlarged appendix with air but without stranding. Fecalith is noted within the lumen of the appendix with possible air distally. She currently reports the pain is much improved and mainly in the right lower quadrant. HOSPITAL COURSE: The patient was admitted to the surgical service for further treatment of the acute appendicitis. Treatment options were discussed and she elected to proceed observation and IV antibiotics with laparoscopic appendectomy or possible open if her pain does not improve or seems to worsen. She remained inpatient for 2 nights for IV abx. On the day of discharge, she felt well and was tolerating a solid diet without nausea or vomiting or any abdominal pain. She was hemodynamically stable. Her abdomen was benign and soft without any tenderness. She felt ready for discharge. She was discharged to home on 10/06/24 in stable condition on a course of oral Augmentin. She is to follow up in the office in 1 week. Status at Discharge Functional status at discharge: independent ambulation Overall status at discharge: patient is back to baseline Time Attestation Discharge Coordination Time (in mins): 25 Quality: Safe Use of Opioids Does Pt have an Active Cancer Diagnosis on the Problem List?: No Quality: Stroke Does the patient have a stroke diagnosis?: No Physical Exam Vital Signs: Vital Signs: Last Vital Signs Temp 99.0 F 10/06/24 13:08 Pulse 80 10/06/24 13:08 Resp 16 10/06/24 07:46 BP 117/65 10/06/24 13:08 Pulse Ox 98 10/06/24 13:08 O2 Del Method Room Air 10/06/24 13:08 BMI result Body Mass Index 37.8 Const: General: comfortable, no acute distress and alert Orientation/consciousness: patient oriented x3 Resp: Effort & Inspection: normal respiratory effort GI: Palpation (GI): Soft to palpation and nontender Neuro: General: patient oriented x3 Discharge Plan Discharge Anticipated Discharge Date/Time: 10/05/24 15:31 Patient Disposition: Home, Self-Care Discharge Diagnosis: acute appendicitis Referrals: Abelardo Ryan MD [Physician, General Surgery] - 1 Week Jaswinder,Estela Green NP [Primary Care Provider, Internal Medicine] - 1 Week Discharge Medications: New amoxicillin-pot clavulanate 875-125 mg tablet 1 tab PO BID Qty: 18 0RF Discharge Orders: Discharge Order (Routine); Ordered 10/06/24 Ordered By: Fortunato Tate Diet: Advance to usual diet Activity on Discharge: As tolerated Stand Alone Forms: Patient Portal Discharge page Print Language: Latvian Activity Restrictions/Additional Instructions: Complete your antibiotics as prescribed. Follow up in office in a week. ([phone]) Call Your Doctor If: ? ? -Your temperature exceeds 101 F? ? ? -You experience excessive pain or swelling ? ? -You have an unexpected reaction to medication ? ? -You experience continued vomiting/nausea Care Plan Goals: Return to baseline health. Health Concerns: Acute appendicitis Plan of Treatment: IV transitioned to oral antibiotics F/u in office in 1 week Assessment: Improved Patient Instructions: Appendicitis (GEN) Discharge Date/Time: 10/06/24 13:10
== END 2024-10-06 13:10 | disposition home or self-care (01) | DRG 395 ==
LOC: HO.ED 19:01 → HO.EDOVER 19:06 → HO.S3 10-05 07:29
PROVIDERS: Physician Assistant Medical; Admitting Provider Surgery; Emergency Provider Emergency Medicine; PCP Nurse Practitioner Family; Visit Provider Surgery
DX: K35.80 Unspecified acute appendicitis (principal); K38.1 Appendicular concretions
CPT/HCPCS: 36415; 74177; 80048; 80076; 81003; 83690; 83735; 84702; 85025; 93005; 99221; 99285; J0131; J1200; J2405; J2543; J2765; Q9967

== ENCOUNTER → 2024-10-04 15:45 | Outpatient (BNV) | payer OTHER, SELFPAY | PROVIDERS: Emergency Provider Emergency Medicine; PCP Nurse Practitioner Family; Visit Provider Radiology Diagnostic Radiology | DX: R10.32 Left lower quadrant pain (principal); R10.2 Pelvic and perineal pain | CPT/HCPCS: 74177 ==

== ENCOUNTER → 2024-10-04 15:45 | Outpatient (BNV) | payer OTHER, SELFPAY | PROVIDERS: Admitting Provider Surgery; Emergency Provider Emergency Medicine; PCP Nurse Practitioner Family; Visit Provider Internal Medicine Cardiovascular Disease | DX: R94.31 Abnormal electrocardiogram [ECG] [EKG] (principal); R55 Syncope and collapse | CPT/HCPCS: 93010 ==

== ENCOUNTER → 2024-10-04 16:04 | Outpatient (BNV) | payer OTHER, SELFPAY | PROVIDERS: Emergency Provider Emergency Medicine; PCP Nurse Practitioner Family; Visit Provider Surgery | DX: K35.890 Other acute appendicitis without perforation or gangrene (principal) | CPT/HCPCS: 99024; 99222; 99232; 99238 ==

== ENCOUNTER 2024-10-10 10:01 | Outpatient (AMB) | payer OTHER, SELFPAY ==
--- NOTE | 2024-10-10 10:03 | MHC.OFFVIS ---
Vital Signs 10/10/24 10:13 Height 5 ft 1 in Weight 199 lb 2 oz BMI 37.6 BP 123/76 Blood Pressure Location Lt brachial Position Sitting Pulse 93 Intake Visit Reasons: ER- Appendicitis Intake Note: Patient is seen in office for ER folllow up visit, following appendicitis. Pt c/o: went to ER due to lower stomach pain, was given antbx, pain is less, but still has pain on the right abdomen on and off, nausea, no bm since , Pain Management Nurse Practitioner Required: No Accompanied by: Self / Same As Patient Allergies No Known Allergies Allergy (Verified 10/10/24 10:10) Medication List - Last Reconciled 10/10/24 by Abelardo Ryan MD amoxicillin-pot clavulanate 875-125 mg 1 tab PO BID HPI Comments Details: 34-year-old female patient presenting initially with complaints of abdominal pain in the right lower quadrant and evaluated in the emergency department on 10/04/2024. She was determined to have early appendicitis and treated with IV followed by oral antibiotics. She was subsequently discharged home on 10/05/2024. She reports feeling improved but still has some abdominal pain in the suprapubic and right lower quadrant abdomen. She denies fever chills but does occasionally have some nausea. She also reports constipation since being admitted to the hospital. She continues to take the antibiotics as prescribed. [facility] Medical History Acute appendicitis Social History Household Members: Family Housing: Apartment Do you presently have visiting nurse or other home services: No Patient Tobacco Use Status: Never used Tobacco Review of Systems Const All systems reviewed & are unremarkable except as noted in HPI and below Physical Exam Vital Signs: Last Vital Signs Pulse 93 10/10/24 10:13 BP 123/76 10/10/24 10:13 BMI result Body Mass Index 37.6 Last Vital Signs Temp 99.0 F 10/06/24 13:08 Pulse 80 10/06/24 13:08 Resp 16 10/06/24 07:46 BP 117/65 10/06/24 13:08 Pulse Ox 98 10/06/24 13:08 O2 Del Method Room Air 10/06/24 13:08 BMI result Body Mass Index 37.8 Const General: comfortable, no acute distress and alert Orientation/consciousness: patient oriented x3 Resp Effort & Inspection: normal respiratory effort GI Palpation (GI): Soft to palpation, Tenderness to palpation present (GI) in the RLQ and at McBurney's point; Manley's sign negative, psoas sign negative and with no rebound tenderness, no guarding and not rigid Percussion: Yes normal to percussion Rectal Exam - Female: deferred Neuro General: patient oriented x3 Extrem General: Yes normal to inspection and Yes no clubbing, cyanosis or edema Assessment & Plan Assessment & Plan (1) Acute appendicitis: Code(s): K35.80 - Unspecified acute appendicitis Category: Medical Qualifiers: Acute appendicitis type: other Qualified Code(s): K35.890 - Other acute appendicitis without perforation or gangrene Plan 34-year-old female patient presenting with complaints of suprapubic and right lower quadrant abdominal pain found on initial workup to have early appendicitis. She was treated non operatively with antibiotics but continues to have some discomfort in the right lower quadrant. On examination there is some mild tenderness in the right lower quadrant as well without rebound or guarding. We discussed the options of continuing the antibiotics verses proceeding to laparoscopic appendectomy. After review of the procedure, risks, and alternatives, she consents to a laparoscopic or possible open appendectomy. She will be scheduled as a short-stay surgery at her earliest convenience. Coding Level of Care Code Est Pt Level 4 (48614) Diagnoses Other acute appendicitis K35.890 Acute appendicitis type: other
[2024-10-10 10:13] VITALS: BP 123/76; PULSE 93; BMI 37.6
--- OUTSIDE RECORDS SUMMARY | 2024-10-10 10:35 | XMS_ITS | Clinical Summary ---
[facility] Organization [facility] Address [address] [place] [address] Care Team Providers Care Navy Seal Name Role Phone JobyDanielle ashraf Primary Care [...] age to complete this topic Care Teams Navy Seal Relationship Specialty Start Date End Date Danielle Aggarwal DO PCP - General Record Searcher 07/03/18
--- OUTSIDE RECORDS SUMMARY | 2024-10-10 10:35 | XMS_ITS | Patient Health Record ---
[facility] [place] Address [address] [place] [address] Care Team Providers Care Sprinkler Repair Technician Name Role Phone Martin SAINI, Estela Primary Care Provider Cynthia Davison Unavailable [phone] Allergies No Known Allergies Reason For Referral [...] Start Date Coverage End Date MELITON RAMIREZ [id number] [place] [address] [id number] Rosa Hyman Self - patient is the insured Medical (General) History Surgical History Surgery Date(Month/Year)
== END 2024-10-10 10:41 | disposition home or self-care (01) ==
LOC: HO.HGS 10:02
PROVIDERS: PCP Nurse Practitioner Family; Visit Provider Surgery
DX: K35.890 Other acute appendicitis without perforation or gangrene (principal)
CPT/HCPCS: 99214

== ENCOUNTER 2024-10-23 11:34 | Day surgery (SDC) | payer OTHER, SELFPAY ==
--- OUTSIDE RECORDS SUMMARY | 2024-10-11 12:43 | XMS_ITS | Clinical Summary ---
[facility] Address [address] [place] [address] Care Team Providers Care Bread Stacker Name Role Phone JobyDanielle ashraf Primary Care [...] age to complete this topic Care Teams Bread Stacker Relationship Specialty Start Date End Date Danielle Aggarwal DO PCP - General Hospital Coordinator 07/03/18
--- OUTSIDE RECORDS SUMMARY | 2024-10-11 12:43 | XMS_ITS | Patient Health Record ---
[facility] [place] Address [address] [place] [address] Care Team Providers Care Loom Blower Name Role Phone Martin SAINI, Estela Primary Care Provider Cynthia Davison Unavailable [phone] Allergies No Known Allergies Reason For Referral [...] Start Date Coverage End Date MELITON RAMIREZ [id number] [place] [address] [id number] Rosa Hyman Self - patient is the insured Medical (General) History Surgical History Surgery Date(Month/Year)
[2024-10-19 13:01] VITALS: BMI 37.6
--- NOTE | 2024-10-22 13:32 | P.CONAN_ITS ---
Documented by User: Mary Corbin NP 10/22/24 13:35 HPI - Anesthesia Eval Consult details Narrative: 34yo F for Appendectomy Laparoscopic,with possible open PMFSH Active Problems Active Problems: All Active Problems RSV bronchitis (Acute) URI, acute (Acute) Past Medical History Medical History Acute appendicitis Surgical History Surgical History Surgical history unknown Social History Social History Household Members: Family Housing: Apartment Do you presently have visiting nurse or other home services: No Patient Tobacco Use Status: Never used Tobacco Use of substances other than those prescribed or required for medical reasons: Yes Advance Directives: No Advance Directives Information Provided: Yes Meds Allergies Allergy/AdvReac Type Severity Reaction Status Date / Time No Known Allergies Allergy Verified 10/10/24 10:10 Exam Height,Weight and Vital Signs: Height 5 ft 1 in Weight 90.322 kg Pertinent Lab Results Pertinent Lab Results: Laboratory Tests 10/04/24 10/05/24 15:53 06:25 WBC 4.9 Hgb 11.4 L Hct 34.4 L Plt Count 254 Sodium 135 Potassium 3.9 Chloride 106 Carbon Dioxide 22 BUN 10 Creatinine 0.74 Narrative Narrative: EKG 09/2024 Vent. Rate : 80 BPM Atrial Rate : 80 BPM P-R Int : 176 ms QRS Dur : 92 ms QT Int : 366 ms P-R-T Axes : 17 0 14 degrees QTcB Int : 422 ms Normal sinus rhythm Minimal voltage criteria for LVH, may be normal variant ( R in aVL ) Cannot rule out Anterior infarct , age undetermined Abnormal ECG No previous ECGs available Assessment and Plan Assessment Anesthesia Assessment: Chart Reviewed Documented by User: Christiano Kauffman MD 10/23/24 16:53 HPI - Anesthesia Eval Consult details Narrative: 34yo F for Appendectomy Laparoscopic,with possible open wegovy last done 2 weeks ago Anesthesia Pre-Procedure Meds Is the patient on any of the following meds?: GLP1/DPP4 If yes to any meds - educate patient: Pt education - increased risk of aspira tion and/or euvolemic DKA PMFSH Past Medical History Medical History Acute appendicitis Family History Family history of problems with anesthesia: No Surgical History Surgical History Surgical history unknown History of Problems with Anesthesia: No Social History Social History Household Members: Family Housing: Apartment Do you presently have visiting nurse or other home services: No Patient Tobacco Use Status: Never used Tobacco Use of substances other than those prescribed or required for medical reasons: Yes Advance Directives: No Advance Directives Information Provided: Yes Meds Allergies Allergy/AdvReac Type Severity Reaction Status Date / Time No Known Allergies Allergy Verified 10/10/24 10:10 Exam Airway Mallampati Class: I TM Dist: >3cm Neck ROM: Full Assessment and Plan Assessment Anesthesia Assessment: Anesthesia Plan Discussed Final Anesthetic Review Family History of Problems with Anesthesia: No History of Problems with Anesthesia: No NPO: Yes ASA Class: II Final Preanesthetic Review: No Changes in Pt Med Stat, Meds/Allgs Chart Reviewed, Consent Obtained/Reviewed and Anes Risks/Benef Reviewed Patient Risk: Low Procedure Risk: Low Anesthetic Plan Anesthetic Plan: GA Disposition: Standard PACU
[2024-10-23] VITALS (9 sets, daily range): BP systolic 101–116; BP diastolic 56–72; PULSE 71–100; RESP 14–18; TEMP 36.1–36.3; O2SAT 94–100
[2024-10-23] MEDS: Lactated Ringers 1,000 ML 100 ML IVCONT (11:58)
[2024-10-23 11:59] LABS: UPreg QC Valid YES
--- NOTE | 2024-10-23 12:18 | MHC.SHP ---
Pre-Procedural Eval Section A - 24 Hr Update-Section A only Date of Service: 10/23/24 The patient is an INPATIENT: No Changes since office visit: Yes Patient answered all questions; No Cold of Flu in the past 2 weeks, No New Medical Problems and No Changes in Medication The patient has been examined within 24 hours of the surgical procedure. The History & Physical has been completed within 30 days and I have reviewed it.: Yes Section B - Complete if H&P > 30 days Chief Complaint: Other acute appendicitis without perforation or Allergies: Allergies Allergy/AdvReac Type Severity Reaction Status Date / Time No Known Allergies Allergy Verified 10/10/24 10:10 Plan Diagnosis/Plan: Unchanged I have reviewed the history and physical and performed a pertinent physical examination on my patient. No changes have occurred unless specified. Time Spent With Patient Time: Total time managing care of this patient today ____ minutes.
--- NOTE | 2024-10-23 15:36 | P.OP_ITS ---
Operative Note Operative Note Date of Service: 10/23/24 Narrative: Preoperative diagnosis: Acute appendicitis Postoperative diagnosis: Same Procedure: Laparoscopic appendectomy Surgeon: Abelardo Ryan MD Process Engineering Technician: Krysta Rich PA-C; KIM Tuttle Anesthesia: General endotracheal Indications for procedure: 34 year old female recently admitted for early mild appendicitis noted to have a dilated appendix with fecolith, discharged home on oral antibiotics now returning for elective interval laparoscopic appendectomy. Operative findings: Tortuous appendix with no significant inflammatory changes Specimen: Appendix Estimated blood loss: Less than 1 mL Complications: None Procedure details: Patient was brought to the OR and placed in a supine position. After administering general anesthesia the patient's abdomen was prepped with ChloraPrep and draped in a sterile fashion. A surgical time-out was called and consent confirmed. Patient received preoperative antibiotics and Venodyne boots were in place. Local anesthesia consisting of 0.5% Sensorcaine with epinephrine was infiltrated in periumbilical region. A 5 mm incision was made below the umbilicus and carried down through subcutaneous tissue. A Veress needle was then inserted while elevating abdominal cavity with towel clips. After a positive drop test the abdomen was insufflated to a pressure of 15 mm of mercury. The Veress needle was removed and a 5 mm trocar inserted. The camera was then inserted in the abdomen explored. A 2nd 5 mm trocars placed in the lower midline. A 12 mm trocar was then placed in the left lower quadrant. The patient was then placed in a Trendelenburg position and rotated to the left. The exceptional children teacher assistant was used to operate the camera and maintain retraction. The appendix was identified in the right lower quadrant and brought up using blunt dissecting clamps. The mesentery of the appendix was then divided using the LigaSure. The appendiceal artery was cauterized and divided using the LigaSure. Dissection was continued down to the base of the cecum. An Endo-TERE stapler with a purple reload was then used to divide the appendix at the base with the cecum. The appendix was then placed in Endo-Catch bag and brought out through the left lower quadrant incision. The abdomen was then irrigated with saline solution and suctioned dry. Wounds were checked for hemostasis. CO2 was then evacuated from the abdominal cavity and all trocars removed. Fascia was closed in the left lower quadrant incision using a vstjmm-fe-wozil 0 Polysorb suture. Skin was closed at all incisions using a subcuticular 4-0 Polysorb suture. Steri-Strips 2 x 2 gauze and Tegaderm were then applied. The patient tolerated the procedure well. Sponge, instrument, needle counts reported as correct. The patient was transferred to PACU in stable condition.
== END 2024-10-23 17:10 | disposition home or self-care (01) ==
PROVIDERS: Nurse Practitioner; PCP Nurse Practitioner Family; Visit Provider Surgery
PROC: 0DTJ4ZZ Resection of Appendix, Percutaneous Endoscopic Approach (ICD-10-PCS; CPT 44970; principal; 2024-10-23 13:00)
DX: K35.890 Other acute appendicitis without perforation or gangrene (principal); K38.1 Appendicular concretions; K38.8 Other specified diseases of appendix; K59.00 Constipation, unspecified
CPT/HCPCS: 44970; 81025; 88304; J0131; J1100; J1171; J1790; J1885; J2003; J2250; J2405; J2704; J3010

== ENCOUNTER → 2024-10-23 11:34 | Outpatient (BNV) | payer OTHER, SELFPAY | PROVIDERS: PCP Nurse Practitioner Family; Visit Provider Surgery | DX: K35.80 Unspecified acute appendicitis (principal) | CPT/HCPCS: 44970 ==

== ENCOUNTER 2024-11-02 11:00 | Outpatient (AMB) | payer OTHER, SELFPAY ==
--- OUTSIDE RECORDS SUMMARY | 2024-11-02 11:04 | XMS_ITS | Clinical Summary ---
[facility] Organization [facility] Address [address] [place] [address] Care Team Providers Care Scanner Supervisor Name Role Phone JobyDanielle ashraf Primary Care [...] Vaccine ( - 2023-2 5 season) 2023 Depression Screening 03/28/2024 Influenza Vaccine (#1) 2024 HIB Vaccines Aged [...] age to complete this topic Care Teams Scanner Supervisor Relationship Specialty Start Date End Date Danielle Aggarwal DO PCP - General Plaque Maker 07/03/18
--- OUTSIDE RECORDS SUMMARY | 2024-11-02 11:04 | XMS_ITS | Patient Health Record ---
Author [facility] Address [address] [place] [address] Care Team Providers Care Portrait Consultant Name Role Phone Martin SAINI, Estela Primary Care Provider Cynthia Davison Unavailable [phone] Allergies No Known Allergies Reason For Referral [...] Start Date Coverage End Date MELITON RAMIREZ [id number] [place] [address] [id number] Rosa Hyman Self - patient is the insured Medical (General) History Surgical History Surgery Date(Month/Year)
[2024-11-02 11:08] VITALS: BP 107/75; PULSE 101
--- NOTE | 2024-11-02 11:08 | MHC.OFFVIS ---
Vital Signs 11/02/24 11:08 Weight 195 lb BP 107/75 Blood Pressure Location Rt brachial Position Sitting Pulse 101 H Intake Visit Reasons: S/P appendectomy Intake Note: Patient is seen in office for post op assessment post laparoscopic appendectomy. Pt c/o: reports incision healing well. Steri strips fell off. No longer taking rx pain meds. surgery:10/23/24 Invasive Cardiovascular Technologist Required: No Accompanied by: Self / Same As Patient Allergies No Known Allergies Allergy (Verified 11/02/24 11:09) HPI Comments Details: 34-year-old female patient returning 1 week following elective interval appendectomy after a recent episode of acute appendicitis. Operative findings were consistent with a prior history of acute appendicitis. She tolerated the procedure well and does report some soreness in the left lower quadrant incision. She denies any nausea, vomiting, fever or chills. She has been constipated but has not tried a stool softener. [facility] Medical History Acute appendicitis Surgical History History of laparoscopic appendectomy (10/23/24) Social History Household Members: Family Housing: Apartment Do you presently have visiting nurse or other home services: No Patient Tobacco Use Status: Never used Tobacco Review of Systems Const All systems reviewed & are unremarkable except as noted in HPI and below Physical Exam Vital Signs: Last Vital Signs Pulse 101 H 11/02/24 11:08 BP 107/75 11/02/24 11:08 Const General: no acute distress Nutritional Appearance: well nourished Orientation/consciousness: patient oriented x3 Limitations: no limitations Resp Effort & Inspection: normal respiratory effort GI Other: Soft and nondistended, all trocar incisions were well healed without evidence of hernia or infection. Neuro General: patient oriented x3 Extrem General: Yes normal to inspection Assessment & Plan Assessment & Plan (1) Acute appendicitis: Code(s): K35.80 - Unspecified acute appendicitis Category: Medical Qualifiers: Acute appendicitis type: other Qualified Code(s): K35.890 - Other acute appendicitis without perforation or gangrene Plan 34-year-old female patient returning 1 week following laparoscopic appendectomy for acute appendicitis. She tolerated the procedure well and her wounds are healing nicely. She should continue to avoid lifting greater than 10 lb for another week after which she may resume normal activity. She should follow up as needed. I recommended a stool softener such as Colace help with the bowels. She expressed understanding and agrees with the plan. Coding Level of Care Code Global (42535) Diagnoses Other acute appendicitis K35.890 Acute appendicitis type: other
== END 2024-11-02 11:31 | disposition home or self-care (01) ==
LOC: HO.HGS 11:01
PROVIDERS: PCP Nurse Practitioner Family; Visit Provider Surgery
DX: K35.890 Other acute appendicitis without perforation or gangrene (principal)
CPT/HCPCS: 99024

== ENCOUNTER 2025-01-15 12:39 | Outpatient (REF) | payer OTHER, SELFPAY ==
--- NOTE | ~2025-01-15 | XR_ITS ---
EXAMINATION: XR CHEST 2 VIEWS HISTORY: R05.9 - Cough, unspecified COMPARISON: Comparison is made with the prior examination dated 03/29/2024. FINDINGS: PA and lateral views of the chest are submitted. The lungs are expanded and clear. There is no pleural effusion, pneumothorax, or pulmonary vascular congestion. The heart is normal in size. The bones are intact. XR/XR chest 2V IMPRESSION: No acute cardiopulmonary abnormality. Electronically signed by: Vel Hogue MD 01/15/2025 01:51 PM EDT
--- OUTSIDE RECORDS SUMMARY | 2025-01-15 17:22 | XMS_ITS | Clinical Summary ---
Author Organization [facility] ity Address [address] [place] [address] Care Team Providers Care Travel Nurse Name Role Phone JobyDanielle ashraf Primary Care [...] Cervical Cancer Screening: P ap Smear 2013 HPV Vaccines (1 - 3-dose SCD M series) 2019 DTaP,Tdap,and Td Vaccines (2 - Td or Tdap) 07/11/2023 07/10/2013 Depression Screening 03/28/2024 COVID-19 Vaccine ( - 2023-2 5 season) 2024 Influenza Vaccine (#1) 2024 RSV Immunization Adult Patie nts (1 - 1-dose 75+ series) 2067 HIB Vaccines Aged Out No longer eligi [...] age to complete this topic Care Teams Travel Nurse Relationship Specialty Start Date End Date Danielle Aggarwal DO PCP - General [employer] 07/03/18
== END 2025-01-15 12:40 | disposition home or self-care (01) ==
LOC: HO.HMGCX 12:39
PROVIDERS: PCP Nurse Practitioner Family; Visit Provider Family Medicine
DX: J45.901 Unspecified asthma with (acute) exacerbation (principal); J22 Unspecified acute lower respiratory infection
CPT/HCPCS: 71046

== ENCOUNTER 2025-01-15 12:39 | Outpatient (AMB) | payer OTHER, SELFPAY ==
[2025-01-15 12:44] VITALS: BP 118/66; PULSE 122; TEMP 36.8; O2SAT 98; BMI 39.3
--- NOTE | 2025-01-15 12:44 | MHC.OFFWIV ---
Intake Vital Signs 01/15/25 12:44 01/15/25 14:07 Height 5 ft 1 in Weight 208 lb BMI 39.3 BP 118/66 Blood Pressure Location Lt brachial Position Sitting Pulse 122 H 108 H Pulse Source Pulse Oximeter Pulse Oximeter Temp 98.3 F Temp Source Oral Pulse Oximetry (%) 98 Oxygen Delivery Method Room Air Intake Visit Reasons: EP SOB, congested, fever, chills, 1+week. Intake Note: pt presents with chest congestion with mild productive cough, sinus congestion, dyspnea wth chest heaviness, fever,body chills/aches, throat ache, a little over 1 wk Patient Tobacco Use Status: Never used Tobacco Allergies No Known Allergies Allergy (Verified 01/15/25 12:50) Do you need a note to return to daycare/school/sports/work: Yes HPI HPI Comments History of Present Illness Details Patient was informed and verbally consented to the use of an ambient scribe for clinic note documentation during the visit. The patient is a 34-year-old female presenting with shortness of breath, chest tightness, and congestion. Upper Respiratory Infection (Suspected Viral): - Symptoms began approximately one week ago with a sore throat. - The patient reports experiencing on-and-off fever, the last recorded temperature being 101?F a day prior to the visit. - Describes having chills, nasal congestion, and a progressively worsening cough, initially mild but has intensified over time. - Reports shortness of breath and a sensation of chest tightness. Denies chest pain. - Attempts to manage the symptoms with dqxg-rpx-jwluydo medications have been ineffective. - No accompanying nausea, vomiting, or diarrhea. - Previous medical history includes negative strep test results. - The patient reports a history of asthma with possession of inhalers (specifically albuterol) at home. - The patient notes recent use of a rescue inhaler to manage symptoms. - Despite usage, the patient indicates that the inhaler provided little to no relief. - The onset of worsening symptoms and frequency of inhaler use have increased recently. Review of Systems - Constitutional: Reports fever, chills; Denies nausea, vomiting, diarrhea. - Respiratory: Reports sore throat, nasal congestion, cough, shortness of breath, and chest tightness; Denies productive cough. - Cardiovascular: Denies chest pain - Psychological: Denies any symptoms related to anxiety or depression. Physical exam Constituational: +Alert and oriented, Well nourished, No acute distress. ENT: Nasal drainage and postnasal drainage noted. Oropharynx clear without erythema or exudates. External ear and ear canals within normal limits. TM without erythema or bulging. Pulmonary: Patient noted to have inspiratory wheezing bilaterally in upper and lower lung rashid. No respiratory distress. Speaking in full sentences. Musculoskeletal: Moving all extremities spontaneously and against gravity Psychiatric: Cooperative, Appropriate mood & affect, Normal judgment. [facility] Medical History Acute appendicitis Surgical History History of laparoscopic appendectomy (10/23/24) Social History Household Members: Family Housing: Apartment Do you presently have visiting nurse or other home services: No Patient Tobacco Use Status: Never used Tobacco Physical Exam Vital Signs: Last Vital Signs Temp 98.3 F 01/15/25 12:44 Pulse 108 H 01/15/25 14:07 BP 118/66 01/15/25 12:44 Pulse Ox 98 01/15/25 12:44 Oxygen Delivery Method Room Air 01/15/25 12:44 BMI result Body Mass Index 39.3 Office Procedures Nebulizer Treatment Nebulizer Treatment [id number]/[id number] RX initial, or Nebulizer Subsequent Treatment Office Meds ipratropium 0.5 mg-albuterol 3 mg (2.5 mg base)/3 mL nebulization soln Performing Provider: Avis Zarate MD Performing Location: [facility] Administered by: Avis Zarate MD on 01/15/25 13:47 Dose Route Admin Location Dispensed Lot Number Expiration Date [facility] Drawer In Plain Loom 3 mL inhalation 3 mL [id number] 04/27/26 95860-237-25 [employer] Results AMB Rapid Strep AMB Rapid Strep Negative Last Edit by Alix Jimenez CMA on 01/15/25 13:34 Results Reviewed Results Reviewed: Laboratory Last Values Strep Scn Rapid Clinic Negative 01/15/25 13:33 Assessment & Plan Assessment & Plan (1) Acute respiratory infection: Code(s): J22 - Unspecified acute lower respiratory infection (2) Reactive airway disease with wheezing: Code(s): J45.909 - Unspecified asthma, uncomplicated Qualifiers: Asthma severity: unspecified severity Asthma persistence: unspecified Asthma complication type: with acute exacerbation Qualified Code(s): J45.901 - Unspecified asthma with (acute) exacerbation Plan 1. Upper Respiratory Infection (Suspected Viral) - No acute changes noted on chest x-ray per personal review. - Symptoms likely secondary to viral URI. - Conducted a viral respiratory panel for further diagnostic clarity. - Encourage rest, hydration, and monitoring for exacerbations in symptoms such as increased fever or worsening breathlessness, with instructions to return if symptoms persist or worsen. 2. Asthma - Patient reports a history of asthma; rescue inhaler has not been helpful - Patient noted to have inspiratory wheezing - DuoNeb breathing treatment administered. Post administration, wheezing had improved. - Prednisone 40 mg daily prescribed. Discussed temporary increase in blood sugars while taking steroids. Patient was also informed about potential side effects such as insomnia and upset stomach. - Emphasized the use of rescue inhaler as needed - Follow up as above Orders: Orders XR chest 2V Today R05.9 - Cough, unspecified Resp Pathogen Panel - [facility] Today J06.9 - Acute upper respiratory infection, unspecified, J22 - Unspecified acute lower respiratory infection AMB Rapid Strep Screen Today Z13.9 - Encounter for screening, unspecified AMB Nebulizer Treatment Today R06.2 - Wheezing Medications: New prednisone 40 mg (2 x 20 mg) PO QAM 10 tabs 0RF Coding Level of Care Code New Pt Level 4 (18850) Diagnoses Acute respiratory infection J22 Reactive airway disease with wheezing with acute exacerbation, unspecified asthma severity, unspecified whether persistent J45.901 Asthma severity: unspecified severity Asthma persistence: unspecified Asthma complication type: with acute exacerbation CPT Codes Nebulizer Treatment - Nebulizer Treatment, initial or subsequent: [id number] RX initial, or Nebulizer Subsequent Treatment ([id number])
[2025-01-15 14:07] VITALS: PULSE 108
--- OUTSIDE RECORDS SUMMARY | 2025-01-15 16:08 | XMS_ITS | Patient Health Record ---
Author [facility] [place] Address [address] [place] [address] Care Team Providers Care Lumber Estimator Name Role Phone Martin SAINI, Estela Primary Care Provider Cynthia Davison Unavailable [phone] Allergies No Known Allergies Reason For Referral [...] Start Date Coverage End Date MELITON RAMIREZ [id number] [place] [address] [phone] [id number] Rosa Hyman Self - patient is the insured Medical (General) History Surgical History Surgery Date(Month/Year)
== END 2025-01-15 14:05 | disposition home or self-care (01) ==
PROVIDERS: PCP Nurse Practitioner Family; Visit Provider Family Medicine
DX: J22 Unspecified acute lower respiratory infection (principal); J45.901 Unspecified asthma with (acute) exacerbation; R06.2 Wheezing; J02.9 Acute pharyngitis, unspecified

== ENCOUNTER 2025-01-15 13:28 | Outpatient (REF) | payer OTHER, SELFPAY ==
[2025-01-16 11:25] LABS: Chlamydia pneumoniae PCR Not Detected (Not Detect.); Coronavirus 229E PCR Not Detected (Not Detect.); Coronavirus HKU1 PCR Not Detected (Not Detect.); Coronavirus NL63 PCR Not Detected (Not Detect.); Coronavirus OC43 PCR Not Detected (Not Detect.); RSV PCR Not Detected (Not Detect.); Rhino/Enterovirus PCR Detected (Not Detect.)
[2025-01-16 11:40] LABS: Influenza A H1 PCR Not Detected (Not Detect.); Influenza A H1-2009 PCR Not Detected (Not Detect.); Influenza A H3 PCR Not Detected (Not Detect.); SARS-CoV-2 PCR Not Detected (Not Detect.)
== END 2025-01-15 13:29 | disposition home or self-care (01) ==
LOC: HO.LAB 13:28
PROVIDERS: Visit Provider Family Medicine
DX: J06.9 Acute upper respiratory infection, unspecified (principal)
CPT/HCPCS: 87633

== ENCOUNTER → 2025-01-15 13:30 | Outpatient (BNV) | payer OTHER, SELFPAY | PROVIDERS: PCP Nurse Practitioner Family; Visit Provider Radiology Diagnostic Radiology | DX: R05.9 Cough, unspecified (principal) | CPT/HCPCS: 71046 ==